=== PATIENT | male | born 1955 | race African-American/Black ===

== ENCOUNTER 2017-04-16 00:23 | Emergency (ER) | payer OTHER ==
--- NOTE | 2017-04-16 02:01 | ER Document Report ---
ED Cardiac - General Chief Complaint: Chest Pain > 30 Stated Complaint: CHEST PAIN Time Seen by Provider: 04/16/17 02:01 TRAVEL OUTSIDE OF THE [place] IN LAST 30 DAYS: No - HPI Notes: Patient is a 61-year-old male with a history of diabetes and hypertension who presents to the ED complaining of nonspecific chest pain and epigastric pain. Patient states that he has had this nonspecific chest pain intermittently for the last 2 years. Patient states that he did have a stress test about a month ago which was unremarkable per patient. Patient states that he has nitro at home that he tried to use during exacerbations of the pain with no relief. Patient states that he is not sure exactly what exacerbates the pain, but does tend to notice an increase in symptoms with exertion. Patient states that his sugars have been all over the place lately ranging from 200-400. Patient states that he is still able to eat and drink, but he feels bloated in his epigastric region and feels like his food is just sitting in his stomach. Patient states that he still urinating normally and having normal bowel movements otherwise. Patient states that his chest pain and epigastric pain are not sharp. Patient states that they are "noticeable" but cannot specify what kind of a pain it is. Patient states that it is more of a discomfort than actual pain. Patient has not noticed any increase in symptoms with stretching or palpation. Patient denies any previous WI, CVA, DVT, PE, dissection, aneurysm. He denies any smoking or illicit drug use. Denies any long distance travel or leg pains. He denies any drug allergies. Denies any headache, fever , head injury, neck pain, changes in vision/speech/mentation/hearing, URI, sore throat, chest pain, palpitations, syncope, cough, shortness of breath, wheeze, dyspnea, abdominal pain, nausea/vomiting/diarrhea, urinary retention, dysuria, hematuria, loss of control of bowel or bladder, numbness/tingling, saddle anesthesia, muscle paralysis/weakness, or rash. [facility] - Related Data Allergies/Adverse Reactions: No Known Allergies Allergy (Unverified 04/01/11 06:13) Past Medical History - Social History Smoking Status: Never Smoker Family History: Reviewed & Not Pertinent Patient has suicidal ideation: No Patient has homicidal ideation: No - Past Medical History Cardiac Medical History: Reports: Hx Hypercholesterolemia Renal/ Medical History: Denies: Hx Peritoneal Dialysis Past Surgical History: Reports: Hx Abdominal Surgery - Immunizations Hx Diphtheria, Pertussis, Tetanus Vaccination: No Review of Systems - Review of Systems Notes: REVIEW OF SYSTEMS: CONSTITUTIONAL : Denies fever, chills, or sweats. Denies recent illness. EENT: Denies eye, ear, throat, or mouth pain or symptoms. Denies nasal or sinus congestion or discharge. Denies throat, tongue, or mouth swelling or difficulty swallowing. CARDIOVASCULAR: see hpi. RESPIRATORY: Denies cough, cold, or chest congestion. Denies shortness of breath, difficulty breathing, or wheezing. GASTROINTESTINAL: see hpi. GENITOURINARY: Denies difficulty urinating, painful urination, burning, frequency, blood in urine, or discharge. MUSCULOSKELETAL: Denies back or neck pain or stiffness. Denies joint pain or swelling. SKIN: Denies rash, lesions or sores. NEUROLOGICAL: Denies confusion or altered mental status. Denies passing out or loss of consciousness. Denies dizziness or lightheadedness. Denies headache. Denies weakness or paralysis or loss of use of either side. Denies problems with gait or speech. Denies sensory loss, numbness, or tingling. denies seizures. PSYCHIATRIC: Denies anxiety or stress. Denies depression, suicidal ideation, or homicidal ideation. ALL OTHER SYSTEMS REVIEWED AND NEGATIVE. Dictation was performed using [employer] voice recognition software Physical Exam - Vital signs Vitals: Temp Pulse Resp BP Pulse Ox 97.8 F 65 22 H 118/75 97 04/16/17 00:39 04/16/17 00:39 04/16/17 00:39 04/16/17 00:39 04/16/17 00:39 Notes: PHYSICAL EXAMINATION: GENERAL: Well-appearing, well-nourished and in no acute distress. HEAD: Atraumatic, normocephalic. EYES: Pupils equal round and reactive to light, extraocular movements intact, sclera anicteric, conjunctiva are normal. ENT: Nares patent and without discharge. oropharynx clear without exudates. No tonsilar hypertrophy or erythema. Moist mucous membranes. No sinus tenderness. Chest: Non-tender. Equal rise/fall. NECK: Normal range of motion, supple without lymphadenopathy. No rigidity. LUNGS: Breath sounds clear to auscultation bilaterally and equal. No wheezes rales or rhonchi. HEART: Regular rate and rhythm without murmurs, rubs, gallops. ABDOMEN: Soft, nontender, nondistended abdomen. No guarding, no rebound. No masses appreciated. Normal bowel sounds present. No CVA tenderness bilaterally. Musculoskeletal: FROM to passive/active. Strength 5+/5. Bev negative. Extremities: No cyanosis, clubbing, or edema b/l. Peripheral pulses 2+. Capillary refill less than 3 seconds. NEUROLOGICAL: Normal speech, normal gait. Normal sensory, motor exams PSYCH: Normal mood, normal affect. SKIN: Warm, Dry, normal turgor, no rashes or lesions noted. Course - Re-evaluation Re-evalutation: 04/16/17 04:[address] Lopez: Pt has elevated Lipase. Reviewed with patient/ who would like to go ahead with the CT scan for further evaluation as patient does not drink and is currently symptomatic. 04/16/17 06:31 Patient is an afebrile, well-hydrated, 61-year-old male who presents to the ED with atypical chest pain and pancreatitis. Vitals are stable. PE otherwise unremarkable. Patient's chest pain has since resolved. Patient states that his abdominal bloating discomfort has also improved. Patient was given a liter of normal saline while in the ED. Reviewed case with Dr. Lopez. CBC, CMP ( aside from known elevated glucose), urinalysis unremarkable for acute pathology. Cardiac enzymes 2 and EKG 2 unremarkable. Heart score of 2. Pt had a negative stress test 1mo ago as per pt. low suspicion/risk for any ACS, PE, pneumothorax, pericarditis, dissection, sepsis, acute appendicitis, bowel obstruction, acute cholecystitis, perforated diverticulitis, incarcerated hernia , pancreatitis, perforated ulcer, peritonitis, testicular torsion, or other systemic emergent condition at this time. Patient is aware that his condition can change from initial presentation and he needs to monitor symptoms closely and seek medical attention if any acute changes. Reviewed with patient that based on his current presentation that we can opt for outpatient therapy with a clear liquid diet and close monitoring with a recheck of his lipase in 2 days either with his PCM or back in the emergency department vs admission. Patient would like to go with the outpatient therapy at this time. Conservative measures otherwise for symptoms. Recheck with PCM in 2-3 days. Consider consult with a greaser operator. Return to the ED with any worsening/ concerning symptoms otherwise as reviewed in discharge. Patient is in agreement. - Vital Signs Vital signs: Temp Pulse Resp BP Pulse Ox 97.8 F 65 20 126/67 H 95 04/16/17 00:39 04/16/17 00:39 04/16/17 05:01 04/16/17 05:01 04/16/17 05:01 - Laboratory Result Diagrams: 04/16/17 02:41 04/16/17 02:41 Laboratory results interpreted by me: 04/16/17 04/16/17 04/16/17 01:55 02:41 02:41 RBC 4.25 L Hgb 13.3 L Hct 37.1 L Glucose 324 H Creatine Kinase 219 H Total Protein 6.0 L Lipase Urine Glucose (UA) >=500 H Urine Blood SMALL H 04/16/17 02:41 RBC Hgb Hct Glucose Creatine Kinase Total Protein Lipase 766.6 H Urine Glucose (UA) Urine Blood Discharge - Discharge Clinical Impression: Atypical chest pain Pancreatitis Qualifiers: Chronicity: acute Pancreatitis type: unspecified pancreatitis type Acute pancreatitis complication: unspecified Qualified Code(s): K85.90 - Acute pancreatitis without necrosis or infection, unspecified Condition: Stable Disposition: HOME, SELF-CARE Instructions: Chest Pain of Unclear Cause ([facility]), Pancreatitis ([facility]), Follow-Up Care ([facility]) Additional Instructions: clear liquid diet as reviewed Your pancreatic enzymes will need rechecked in 2 days either with your PCM or the emergency department* Monitor symptoms for any acute changes After tolerating a clear liquid diet he may then add very bland meals Recheck with your PCM/ED in 2 days* Return to the ED with any worsening symptoms and/or development of fever, headache, chest pain, palpitations, syncope, shortness of breath, trouble breathing, abdominal pain, n/v/d, blood in stool/urine, or other worsening symptoms that are concerning to you. Prescriptions: Tramadol HCl 50 mg PO TID #15 tablet Forms: Elevated Blood Pressure Referrals: [facility] [Provider Group] - 04/18/17
[2017-04-16 02:53] LABS: ABSOLUTE EOSINOPHILS # (AUTO) 0.2 10^3/uL (0.0-0.6); ABSOLUTE LYMPHOCYTES (AUTO) 2.7 10^3/uL (0.5-4.7); BASOPHILS % (AUTO) 0.5 % (0-2); EOSINOPHILS % (AUTO) 2.1 % (0-6); HEMATOCRIT 37.1 % (37.9-51.0); HEMOGLOBIN 13.3 g/dL (13.5-17.0); HGB HCT DIFFERENCE 2.8; LYMPHOCYTES % (AUTO) 27.1 % (13-45); MEAN CORPUSCULAR HEMOGLOBIN 31.3 pg (27.0-33.4); MEAN CORPUSCULAR HGB CONC 35.9 g/dL (32.0-36.0); MEAN CORPUSCULAR VOLUME 87 fl (80-97); MONOCYTES % (AUTO) 9.9 % (3-13); RED BLOOD COUNT 4.25 10^6/uL (4.35-5.55); SEGMENTED NEUTROPHILS % (AUTO) 60.4 % (42-78); WHITE BLOOD COUNT 9.9 10^3/uL (4.0-10.5)
[2017-04-16 03:06] LABS: ALANINE AMINOTRANSFERASE 22 U/L (21-72); ALBUMIN 3.7 g/dL (3.5-5.0); ALKALINE PHOSPHATASE 78 U/L (38-126); ANION GAP 6 (5-19); ASPARTATE AMINO TRANSFERASE 18 U/L (17-59); BILIRUBIN,DIRECT 0.3 mg/dL (0.0-0.4); BILIRUBIN,TOTAL 0.5 mg/dL (0.2-1.3); BLOOD UREA NITROGEN 12 mg/dL (7-20); CALCIUM 9.1 mg/dL (8.4-10.2); CARBON DIOXIDE 27 mmol/L (22-30); CHLORIDE 104 mmol/L (98-107); CREATINE KINASE 219 U/L (55-170); CREATININE RESULT 0.54 mg/dL (0.52-1.25); GLUCOSE 324 mg/dL (75-110); POTASSIUM 3.7 mmol/L (3.6-5.0); SODIUM 137.1 mmol/L (137-145)
[2017-04-16 03:17] LABS: CREATINE KINASE MB 3.88 ng/mL (<4.55)
[2017-04-16 03:18] LABS: TROPONIN I < 0.012 ng/mL
--- NOTE | 2017-04-16 03:19 | RADIOLOGY REPORT (SQ) ---
EXAM DESCRIPTION: CHEST SINGLE VIEW COMPLETED DATE/TIME: 04/16/2017 3:06 am REASON FOR STUDY: chest/epigastric pain COMPARISON: 10.17.14 EXAM PARAMETERS: NUMBER OF VIEWS: One view. TECHNIQUE: Single frontal radiographic view of the chest acquired. RADIATION DOSE: NA LIMITATIONS: None. FINDINGS: LUNGS AND PLEURA: No opacities, masses or pneumothorax. No pleural effusion. MEDIASTINUM AND HILAR STRUCTURES: No masses. Contour normal. HEART AND VASCULAR STRUCTURES: Heart normal in size. Normal vasculature. BONES: No acute findings. HARDWARE: None in the chest. OTHER: No other significant finding. IMPRESSION: NO ACUTE RADIOGRAPHIC FINDING IN THE CHEST. TECHNICAL DOCUMENTATION: JOB ID: [id number]
[2017-04-16 03:22] LABS: APPEARANCE,URINE CLEAR; BILIRUBIN,URINE NEGATIVE (NEGATIVE); GLUCOSE, URINE >=500 mg/dL (NEGATIVE); KETONES,URINE NEGATIVE (NEGATIVE); LEUKOCYTE ESTERASE,URINE NEGATIVE (NEGATIVE); NITRITE,URINE NEGATIVE (NEGATIVE); PROTEIN,URINE NEGATIVE (NEGATIVE); URINE SPECIFIC GRAVITY 1.007; UROBILINOGEN,URINE NEGATIVE mg/dL (<2.0)
[2017-04-16] MEDS ORDERED: NORMAL SALINE 1000 ML 1,000 ML IV ONE (03:37)
[2017-04-16 03:43] LABS: ADD ON TESTING BLD IN LAB ACKNOWLEDGE
[2017-04-16 03:51] LABS: LIPASE 766.6 U/L (23-300)
--- NOTE | 2017-04-16 06:24 | RADIOLOGY REPORT (SQ) ---
EXAM DESCRIPTION: CT ABD/PELVIS WITH IV ONLY COMPLETED DATE/TIME: 04/16/2017 6:04 am REASON FOR STUDY: elevated lipase, epigastric pain COMPARISON: None. TECHNIQUE: CT scan of the abdomen and pelvis performed using helical scanning technique with dynamic intravenous contrast injection. No oral contrast. Images reviewed with lung, soft tissue, and bone windows. Reconstructed coronal and sagittal MPR images reviewed. Delayed images for evaluation of the urinary system also acquired. All images stored on PACS. All CT scanners at this facility use dose modulation, iterative reconstruction, and/or weight based d osing when appropriate to reduce radiation dose to as low as reasonably achievable (ALARA). [facility]: Dose Right [facility]: CareDose [facility]: Dose Right [facility]: Teradose 4D [facility]: Marcandi CONTRAST TYPE AND DOSE: contrast/concentration: Isovue 370.00 mg/ml; Total Contrast Delivered: 98.0 ml; Total Saline Delivered: 70.0 ml RENAL FUNCTION: Creatinine 0.5 RADIATION DOSE: Up-to-date CT equipment and radiation dose reduction techniques were employed. CTDIv ol: 15.6 mGy. DLP: 1673 mGy-cm.. LIMITATIONS: None. FINDINGS: LOWER CHEST: No significant findings. No nodules or infiltrates. LIVER: Normal size. No masses. No dilated ducts. SPLEEN: Normal size. No focal lesions. Splenule. PANCREAS: Mild diffuse enlargement of the pancreatic tail and moderate peripancreatic fat streaking. No significant free fluid. No enhancement abnormality to indicate necrosis at this time. GALLBLADDER: No identified stones by CT criteria. No inflammatory changes to suggest cholecystitis. ADRENAL GLANDS: No significant masses or asymmetry. RIGHT KIDNEY AND URETER: No solid masses. No significant calcifications. No hydronephrosis or hyd roureter. Likely benign 1.2 cm cyst not definitively characterize per LEFT KIDNEY AND URETER: No solid masses. No significant calcifications. No hydronephrosis or hydr oureter. AORTA AND VESSELS: No aneurysm. No dissection. Renal arteries, SMA, celiac without stenosis. RETROPERITONEUM: No retroperitoneal adenopathy, hemorrhage or masses. BOWEL AND PERITONEAL CAVITY: No masses or inflammatory changes. No free fluid or peritoneal masses. APPENDIX: Normal. PELVIS: No mass. No free fluid. Normal bladder. ABDOMINAL WALL: No masses. No hernias. BONES: Minimal developmental T12 and L1 anterior vertebral wedging. Small L5-S1 disc bulge causes mi [id number] bilateral foraminal stenoses. OTHER: No other significant finding. IMPRESSION: Mild -moderate pancreatitis. TECHNICAL DOCUMENTATION: JOB ID: [id number] Quality ID # [id number]: Final reports with documentation of one or more dose reduction techniques (e.g., Au tomated exposure control, adjustment of the mA and/or kV according to patient size, use of iterative reconstruction technique) 2010 [employer]- All Rights Reserved
[2017-04-16 07:03] VITALS: BP 119/67
--- NOTE | 2017-04-16 12:21 | EKG REPORT ---
SEVERITY:- NORMAL ECG - SINUS RHYTHM : Confirmed by: Laura Pina MD 16-Apr-2017 12:21:23
--- NOTE | 2017-04-16 12:22 | EKG REPORT ---
SEVERITY:- NORMAL ECG - SINUS RHYTHM : Confirmed by: Laura Pina MD 16-Apr-2017 12:21:26
== END 2017-04-16 07:16 | disposition home or self-care (01) ==
LOC: ER 00:23
DX: R07.89 Other chest pain (principal); K85.90 Acute pancreatitis without necrosis or infection, unspecified; E11.9 Type 2 diabetes mellitus without complications; I10 Essential (primary) hypertension; R10.13 Epigastric pain
CPT/HCPCS: 93005; 99285; 96360; 36415; 82553; 82550; 83690; 85025; 80053; 81001; 84484; 71010; 74177; 93010; J7030

== ENCOUNTER 2019-05-30 04:12 | Observation (INO) | payer OTHER ==
--- NOTE | 2019-05-30 04:35 | ER Document Report ---
ED Cardiac - General Chief Complaint: Chest Pain Stated Complaint: CHEST PAIN,ABDOMINAL PAIN,BACK PAIN Time Seen by Provider: 05/30/19 04:32 Information source: Patient Notes: Mr. Stein is a 63-year-old male with past medical history of hypertension, diabetes on Lantus and metformin, hyperlipidemia and chronic smoker presenting to the ED for abdominal pain, chest pain and back pain. Patient states it is primarily in bilateral upper quadrants of the abdomen and radiates backwards into the his left upper thorax. He states he has a history of pancreatitis one previous time before a few years ago. He denies any alcohol use, states that he drinks only on holidays. He states that he has been dealing with his ongoing pain over the past 2 weeks, worsening with food intake. He had his blood work drawn at the [facility] on Friday and was told that he does not have pancreatitis. Since the pain is worsened significantly with eating, the patient has looked up what decrease his pancreatitis and has been eating only chicken noodle broth, and other clear liquids. He states that even with liquids, he still having ongo ing severe pain. He denies any fevers or chills. He endorses ongoing nausea with dry heaves. He states that he is eaten 2-3 crackers in the past few days and that has worsened his pain significantly. He denies diarrhea, fever or shortness of breath. He states that he smokes approximately 1-1.5 packs of cigarettes daily for the past 20 to 30 years. He has multiple siblings with coronary artery disease that have required CABG and stents. He denies any personal history of CAD. TRAVEL OUTSIDE OF THE [place] IN LAST 30 DAYS: No - Related Data Allergies/Adverse Reactions: No Known Allergies Allergy (Verified 05/30/19 04:51) Home Medications: lantus 30 units qpm. metformin as neededmetoprolol. l isinopril. chol med Past Medical History - Social History Smoking Status: Current Every Day Smoker Frequency of alcohol use: None Drug Abuse: None Family History: Reviewed & Not Pertinent Patient has suicidal ideation: No Patient has homicidal ideation: No - Past Medical History Cardiac Medical History: Reports: Hx Hypercholesterolemia Renal/ Medical History: Denies: Hx Peritoneal Dialysis Past Surgical History: Reports: Hx Abdominal Surgery - Immunizations Hx Diphtheria, Pertussis, Tetanus Vaccination: No Review of Systems - Review of Systems Constitutional: See HPI EENT: No symptoms reported Cardiovascular: See HPI Respiratory: No symptoms reported Gastrointestinal: See HPI Genitourinary: No symptoms reported Male Genitourinary: No symptoms reported Musculoskeletal: No symptoms reported Skin: No symptoms reported Hematologic/Lymphatic: No symptoms reported Neurological/Psychological: No symptoms reported Physical Exam - Vital signs Vitals: Temp Pulse Resp BP Pulse Ox 97.5 F 76 16 125/67 99 05/30/19 04:18 05/30/19 04:18 05/30/19 04:18 05/30/19 04:18 05/30/19 04:18 Interpretation: Normal - General General appearance: Appears well, Alert - HEENT Head: Normocephalic, Atraumatic Eyes: Normal Pupils: PERRL - Respiratory Respiratory status: No respiratory distress Chest status: Nontender Breath sounds: Normal Chest palpation: Normal - Cardiovascular Rhythm: Regular Heart sounds: Normal auscultation Murmur: No - Abdominal Inspection: Normal Distension: No distension Bowel sounds: Normal Tenderness: Tender - Left upper quadrant tenderness palpation. No CVA tenderness bilaterally.. No: Guarding, Rebound Organomegaly: No organomegaly - Back Back: Normal, Nontender - Extremities General upper extremity: Normal inspection, Nontender, Normal color, Normal ROM, Normal temperature General lower extremity: Normal inspection, Nontender, Normal color, Normal ROM, Normal temperature, Normal weight bearing. No: Bev's sign - Neurological Neuro grossly intact: Yes Cognition: Normal Orientation: AAOx4 Somers Coma Scale Eye Opening: Spontaneous Somers Coma Scale Verbal: Oriented Somers Coma Scale Motor: Obeys Commands Somers Coma Scale Total: 15 Speech: Normal Motor strength normal: LUE, RUE, LLE, RLE Sensory: Normal - Psychological Associated symptoms: Normal affect, Normal mood - Skin Skin Temperature: Warm Skin Moisture: Dry Skin Color: Normal Course - Re-evaluation Re-evalutation: Patient is generally well-appearing and nontoxic. EKG nonischemic. Patient has several cardiac risk factors. Differential diagnosis includes CAD, angina, pancreatitis, GERD, PUD. CBC within normal limits. CMP is notable for hyperglycemia. Initial troponin is negative. Lipase is greater than 1400. 05/30/19 06:[address] Murphy for admission. Patient made n.p.o. Ordered for IV fluids as well as Zofran and morphine as he states the GI cocktail and Toradol did not improve his pain. 05/30/19 06:[address] Murphy for admission for pancreatitis given his ongoing pain despite having clear liquid diet and vomiting. 05/30/19 07:11 - Vital Signs Vital signs: Temp Pulse Resp BP Pulse Ox 98.2 F 86 19 106/65 99 05/30/19 04:33 05/30/19 04:33 05/30/19 04:33 05/30/19 04:33 05/30/19 04:33 - Laboratory Result Diagrams: 05/30/19 04:33 05/30/19 04:33 Laboratory results interpreted by me: 05/30/19 04:33 Creatinine 0.48 L Glucose 383 H Lipase 1488.7 H - EKG Interpretation by Al EKG shows normal: Sinus rhythm, [place], QRS Complexes, ST-T Waves Rate: Normal Rhythm: NSR Discharge - Discharge Clinical Impression: Pancreatitis, Back pain, Abdominal pain, Nausea and vomiting Condition: Good Disposition: ADMITTED INPATIENT Admitting Provider: Jeffrey (Hospitalist) Unit Admitted: Medical Floor
[2019-05-30 05:01] LABS: ABSOLUTE BASOPHILS # (AUTO) 0.1 10^3/uL (0.0-0.2); ABSOLUTE EOSINOPHILS # (AUTO) 0.3 10^3/uL (0.0-0.6); ABSOLUTE LYMPHOCYTES (AUTO) 2.7 10^3/uL (0.5-4.7); ABSOLUTE MONOCYTES (AUTO) 0.9 10^3/uL (0.1-1.4); ABSOLUTE NEUT (AUTO) 4.7 10^3/uL (1.7-8.2); BASOPHILS % (AUTO) 0.7 % (0-2); EOSINOPHILS % (AUTO) 3.2 % (0-6); HEMOGLOBIN 14.6 g/dL (13.5-17.0); LYMPHOCYTES % (AUTO) 31.5 % (13-45); MEAN CORPUSCULAR HEMOGLOBIN 30.7 pg (27.0-33.4); MEAN CORPUSCULAR HGB CONC 34.8 g/dL (32.0-36.0); MEAN CORPUSCULAR VOLUME 88 fl (80-97); MONOCYTES % (AUTO) 10.4 % (3-13); PLATELET COUNT 203 10^3/uL (150-450); RED BLOOD COUNT 4.76 10^6/uL (4.35-5.55); SEGMENTED NEUTROPHILS % (AUTO) 54.2 % (42-78); TOTAL CELLS COUNTED % (AUTO) 100 %; WHITE BLOOD COUNT 8.6 10^3/uL (4.0-10.5)
[2019-05-30 05:19] LABS: ALBUMIN 4.4 g/dL (3.5-5.0); ALKALINE PHOSPHATASE 84 U/L (38-126); ANION GAP 11 (5-19); ASPARTATE AMINO TRANSFERASE 21 U/L (17-59); BILIRUBIN,DIRECT 0.2 mg/dL (0.0-0.4); BILIRUBIN,TOTAL 0.7 mg/dL (0.2-1.3); BLOOD UREA NITROGEN 11 mg/dL (7-20); CALCIUM 9.8 mg/dL (8.4-10.2); CARBON DIOXIDE 26 mmol/L (22-30); CHLORIDE 101 mmol/L (98-107); CREATINE KINASE 101 U/L (55-170); GLUCOSE 383 mg/dL (75-110); TOTAL PROTEIN 7.2 g/dL (6.3-8.2)
[2019-05-30 05:31] LABS: CREATINE KINASE MB 1.72 ng/mL (<4.55); TROPONIN I < 0.012 ng/mL
[2019-05-30] MEDS ORDERED: KETOROLAC TROMETHAMINE INJ/PF 30 MG/1 ML SDV IV ONE (05:45)
[2019-05-30] MEDS ORDERED: MAG HYDROX/AL HYDROX/SIMETH SUSP 30 ML UDCUP PO ONE (05:45)
[2019-05-30] MEDS ORDERED: METOCLOPRAMIDE HCL ORAL SOLN 10 MG/10 ML UDCUP PO ONE (05:45)
[2019-05-30] MEDS ORDERED: LIDOCAINE 2% VISCOUS SOLN 20 ML UDCUP PO ONE (05:45)
--- NOTE | 2019-05-30 05:45 | RADIOLOGY REPORT (SQ) ---
Chest 2 view on 05/30/2019 at 4:59 AM CLINICAL INDICATION: Chest pain COMPARISON: 04/16/2017 FINDINGS: The lungs are clear. Cardiac, hilar and mediastinal contours are within normal limits. Pulmonary vascularity is within normal limits. Degenerative changes are noted in the spine. No acute bony abnormality is noted. IMPRESSION: No active disease.
[2019-05-30] MEDS ORDERED: NORMAL SALINE 1000 ML 2,000 ML IV ONE (06:34)
[2019-05-30] MEDS ORDERED: MORPHINE SULFATE 10 MG/ML INJ IV ONE (06:41)
[2019-05-30] MEDS ORDERED: ONDANSETRON HCL INJ/PF 4 MG/2 ML SDV IV ONE (06:41)
[2019-05-30] MEDS ORDERED: ACETAMINOPHEN 325 MG TABLET PO PRN (06:57)
[2019-05-30] MEDS ORDERED: DEXTROSE 40% GEL 15 GM TUBE PO PRN ×2 (06:57)
[2019-05-30] MEDS ORDERED: IPRATROPIUM/ALBUTEROL 0.5-2.5 MG/3 ML AMPUL NEB PRN (06:57)
[2019-05-30] MEDS ORDERED: GLUCAGON,HUMAN RECOMB 1 MG INJ IM PRN (06:57)
[2019-05-30] MEDS ORDERED: DEXTROSE 50%-WATER 25 GM/50 ML DISP.SYRIN IV PRN ×2 (06:57)
[2019-05-30] MEDS ORDERED: ONDANSETRON HCL INJ/PF 4 MG/2 ML SDV IV PRN (06:57)
[2019-05-30] MEDS ORDERED: NORMAL SALINE 1000 ML 1,000 ML IV PRN (07:00)
--- NOTE | 2019-05-30 07:14 | PDOC H&P ---
History of Present Illness Admission Date/PCP: 05/30/19 06:57 [facility] Patient complains of: Abdominal pain History of Present Illness: ELEAZAR CARRASCO SR is a 63 year old male with a past medical history of diabetes, hypertension, dyslipidemia, tobacco and chronic pancreatitis. He presents with 2-1/2 weeks of epigastric pain and nausea prompting evaluation in the emergency room. Patient is found to have a lipase of 1500 with out significant LFT abnormalities, intolerant of p.o. he is referred to the hospitalist for observation. Patient denies recent viral illness, new medication or alcohol however admits to poor diabetic control. Past Medical History Cardiac Medical History: Reports: Hyperlipidema, Hypertension Endocrine Medical History: Reports: Diabetes Mellitus Type 1 Social History Information Source: Patient Smoking Status: Current Every Day Smoker Frequency of Alcohol Use: None Drugs: None - Advance Directive Resuscitation Status: Full Code Family History Family History: COPD Parental Family History Reviewed: Yes Children Family History Reviewed: Yes Sibling(s) Family History Reviewed.: Yes Medication/Allergy Home Medications: Aspirin [Aspirin 81 mg Chewable Tablet] 81 mg PO DAILY 05/30/19 Atorvastatin Calcium [Lipitor 20 mg Tablet] 20 mg PO QHS 05/30/19 Insulin Glargine,Hum.rec.anlog [Lantus Insulin 100 Unit/1 ml 10 ml] 36 unit SUBCUT QHS 05/30/19 Lisinopril [Zestril] 2.5 mg PO DAILY 05/30/19 Metoprolol Tartrate [Lopressor 25 mg Tablet] 12.5 mg PO DAILY 05/30/19 Allergies/Adverse Reactions: No Known Allergies Allergy (Verified 05/30/19 04:51) Review of Systems Constitutional: ABSENT: chills, fever(s), headache(s), weight gain, weight loss Eyes: ABSENT: visual disturbances Ears: ABSENT: hearing changes Cardiovascular: ABSENT: chest pain, dyspnea on exertion, edema, orthropnea, palpitations Respiratory: ABSENT: cough, hemoptysis Gastrointestinal: ABSENT: abdominal pain, constipation, diarrhea, hematemesis, hematochezia, nausea, vomiting Genitourinary: ABSENT: dysuria, hematuria Musculoskeletal: ABSENT: joint swelling Integumentary: ABSENT: rash, wounds Neurological: ABSENT: abnormal gait, abnormal speech, confusion, dizziness, focal weakness, syncope Psychiatric: ABSENT: anxiety, depression, homidical ideation, suicidal ideation Endocrine: ABSENT: cold intolerance, heat intolerance, polydipsia, polyuria Hematologic/Lymphatic: ABSENT: easy bleeding, easy bruising Physical Exam Vital Signs: Temp Pulse Resp BP Pulse Ox 98.2 F 86 19 106/65 99 05/30/19 04:33 05/30/19 04:33 05/30/19 04:33 05/30/19 04:33 05/30/19 04:33 Intake & Output 05/28/19 05/29/19 05/30/19 11:59 11:59 11:59 Weight 89.3 kg General appearance: PRESENT: mild distress, well-developed, well-nourished Head exam: PRESENT: atraumatic, normocephalic Eye exam: PRESENT: conjunctiva pink, EOMI, PERRLA. ABSENT: scleral icterus Ear exam: PRESENT: normal external ear exam Mouth exam: PRESENT: moist, tongue midline Neck exam: ABSENT: carotid bruit, JVD, lymphadenopathy, thyromegaly Respiratory exam: PRESENT: clear to auscultation brown. ABSENT: rales, rhonchi, wheezes Cardiovascular exam: PRESENT: RRR. ABSENT: diastolic murmur, rubs, systolic murmur Pulses: PRESENT: normal dorsalis pedis pul Vascular exam: PRESENT: normal capillary refill GI/Abdominal exam: PRESENT: hyperactive bowel sounds, normal bowel sounds, soft, tenderness. ABSENT: distended, guarding, mass, organolmegaly, rebound Rectal exam: PRESENT: deferred Extremities exam: PRESENT: full ROM. ABSENT: calf tenderness, clubbing, pedal edema Neurological exam: PRESENT: alert, awake, oriented to person, oriented to place, oriented to time, oriented to situation, CN II-XII grossly intact. ABSENT: motor sensory deficit Psychiatric exam: PRESENT: appropriate affect, normal mood. ABSENT: homicidal ideation, suicidal ideation Skin exam: PRESENT: dry, intact, warm. ABSENT: cyanosis, rash Results Laboratory Results: 05/30/19 04:33 05/30/19 04:33 05/30/19 05/30/19 04:33 04:33 WBC 8.6 RBC 4.76 Hgb 14.6 Hct 42.0 MCV 88 MCH 30.7 MCHC 34.8 RDW 12.0 Plt Count 203 Seg Neutrophils % 54.2 Sodium 137.7 Potassium 5.0 Chloride 101 Carbon Dioxide 26 Anion Gap 11 BUN 11 Creatinine 0.48 L Est GFR ( Amer) > 60 Glucose 383 H Calcium 9.8 Total Bilirubin 0.7 AST 21 Alkaline Phosphatase 84 Total Protein 7.2 Albumin 4.4 Lipase 1488.7 H 05/30/19 05/30/19 04:33 04:33 Creatine Kinase 101 CK-MB (CK-2) 1.72 Troponin I < 0.012 Impressions: Chest X-Ray 05/30/19 00:00 IMPRESSION: No active disease. Assessment and Plan - Diagnosis (1) Diabetes Is this a current diagnosis for this admission?: Yes Plan: Outpatient Lantus at reduced dose, Humalog sliding scale as needed follow-up A1c follow-up A1c (2) Tobacco abuse Is this a current diagnosis for this admission?: Yes Plan: Discussed, nicotine replacement options (3) Abdominal pain Is this a current diagnosis for this admission?: Yes Plan: Secondary #1 (4) Pancreatitis Is this a current diagnosis for this admission?: Yes Plan: Follow-up CT, lipid profile, A1c. Bowel rest, symptomatic management - Time Time Spent with patient: 15-24 minutes
[2019-05-30 09:40] LABS: APPEARANCE,URINE CLEAR; BILIRUBIN,URINE NEGATIVE (NEGATIVE); COLOR,URINE YELLOW; GLUCOSE, URINE >=500 mg/dL (NEGATIVE); KETONES,URINE NEGATIVE (NEGATIVE); LEUKOCYTE ESTERASE,URINE NEGATIVE (NEGATIVE); NITRITE,URINE NEGATIVE (NEGATIVE); PROTEIN,URINE NEGATIVE (NEGATIVE); URINE SPECIFIC GRAVITY 1.015; UROBILINOGEN,URINE NEGATIVE mg/dL (<2.0)
[2019-05-30 09:55] LABS: URINE AMPHETAMINES SCREEN NEGATIVE; URINE BARBITURATES SCREEN NEGATIVE; URINE BENZODIAZEPINES SCREEN NEGATIVE; URINE COCAINE SCREEN NEGATIVE; URINE MARIJUANA (THC) SCREEN NEGATIVE; URINE METHADONE SCREEN NEGATIVE; URINE PHENCYCLIDINE SCREEN NEGATIVE
[2019-05-30] MEDS ORDERED: METOPROLOL TARTRATE 25 MG TABLET PO SCH (10:00)
[2019-05-30] MEDS ORDERED: ASPIRIN 81 MG TABLET, CHEWABLE PO SCH (10:00)
--- NOTE | 2019-05-30 11:30 | RADIOLOGY REPORT (SQ) ---
EXAM DESCRIPTION: CT ABDOMEN WITH IV ORAL CONT COMPLETED DATE/TIME: 05/30/2019 11:13 am REASON FOR STUDY: acute pancreatitis COMPARISON: 2017 TECHNIQUE: CT scan of the abdomen performed with intravenous and with oral contrast using helical sc anning technique with dynamic intravenous contrast injection. Images reviewed with lung, soft tissue, and bone windows. Reconstructed coronal and sagittal MPR images reviewed. Delayed images were not ac quired. All images stored on PACS. All CT scanners at this facility use dose modulation, iterative reconstruc tion, and/or weight based dosing when appropriate to reduce radiation dose to as low as reasonably ac hievable (ALARA). [facility]: Dose Right [facility]: CareDose [facility]: Dose Right [facility]: Teradose 4D [facility]: Baytex CONTRAST TYPE AND DOSE: contrast/concentration: Isovue 350.00 mg/ml; Total Contrast Delivered: 100.0 ml; Total Saline Delivered: 72.0 ml No RENAL FUNCTION: GFR > 60. RADIATION DOSE: CT Rad equipment meets quality standard of care and radiation dose reduction techniq ues were employed. CTDIvol: 10.2 mGy. DLP: 370 mGy-cm. . LIMITATIONS: None. FINDINGS: LOWER CHEST: No significant findings. No nodules or infiltrates. LIVER: Normal size. No masses. No dilated ducts. SPLEEN: Normal size. No focal lesions. PANCREAS: Minimal peripancreatic haziness. No masses. No calcifications. GALLBLADDER: No identified stones by CT criteria. No inflammatory changes to suggest cholecystitis. ADRENAL GLANDS: No significant masses or asymmetry. RIGHT KIDNEY AND URETER: No solid masses. No significant calcifications. No hydronephrosis or hyd roureter. LEFT KIDNEY AND URETER: No solid masses. No significant calcifications. No hydronephrosis or hydr oureter. AORTA AND VESSELS: No aneurysm. No dissection. Renal arteries, SMA, celiac without stenosis. RETROPERITONEUM: No retroperitoneal adenopathy, hemorrhage or masses. BOWEL AND PERITONEAL CAVITY: No masses or inflammatory changes. No free fluid or peritoneal masses. APPENDIX: Not visualized. ABDOMINAL WALL: No masses. No hernias. BONES: No significant or acute findings. OTHER: No other significant finding. IMPRESSION: Mild changes of pancreatitis. No pseudocyst. TECHNICAL DOCUMENTATION: JOB ID: [id number] Quality ID # [id number]: Final reports with documentation of one or more dose reduction techniques (e.g., Au tomated exposure control, adjustment of the mA and/or kV according to patient size, use of iterative reconstruction technique) 2010 [employer]- All Rights Reserved Reading location - IP/workstation name: [email or web address]
[2019-05-30] MEDS: INSULIN LISPRO 100 UNIT/ML 3 ML VIAL SUBCUT SCH ×2 (11:46→12:00)
[2019-05-30] MEDS ORDERED: HEPARIN SOD (PORCINE) 5,000 UNIT/ML 1 ML VIAL SUBCUT SCH (14:00)
--- NOTE | 2019-05-30 15:39 | PDOC DISCHARGE SUMMARY ---
Impression - Admit/DC Date/PCP Admission Date/Primary Care Provider: 05/30/19 06:57 [facility] Discharge Date: 05/30/19 - Discharge Diagnosis (1) Dyspepsia Is this a current diagnosis for this admission?: Yes (2) Pancreatitis Is this a current diagnosis for this admission?: Yes (3) Diabetes Is this a current diagnosis for this admission?: Yes (4) Tobacco abuse Is this a current diagnosis for this admission?: Yes - Assessment Summary: Mr. Stein is a 63-year-old male with prior history of pancreatitis, diabetes and tobacco use, who presented to the hospital with complains of abdominal and lower chest pain with radiation to the back. On presentation patient confirmed that he felt somewhat similar to his prior pancreatitis episode. Does not have any clear triggers. Vital signs on presentation were unremarkable. Blood work revealed elevated lipase 1400s. CT scan showed minimal pancreatic inflammation. Patient was admitted with concern for another pancreatitis flare. He received IV fluids and has gotten a total of over 2 L along with pain medications. Patient has been able to tolerate diet. Patient currently states that he is completely pain-free and his pain resolved after receiving an oral suspension of Maalox. Patient also raises potential of dyspepsia/indigestion playing a role in patient's symptoms. Of note, troponin measurements were obtained and were all negative. Patient currently expresses wishes to go home states that he will be compliant with hydration and gradually advance his diet as tolerated. States he will follow-up with his primary care immediately. Patient is currently going to be discharged as he is pain-free, nausea free and able to tolerate a diet. - Additional Information Resuscitation Status: Full Code Discharge Diet: Full Liquids - Gradually advance her diet as tolerated Discharge Activity: Activity As Tolerated Referrals: [facility] [[facility]] - Follow up as needed Prescriptions: Mag Hydrox/Al Hydrox/Simeth [Maalox Plus Susp 30 Udcup] 30 ml PO Q6 PRN #30 udc PRN Reason: Heartburn Home Medications: Atorvastatin Calcium [Lipitor 20 mg Tablet] 20 mg PO QHS 05/30/19 Insulin Glargine,Hum.rec.anlog [Lantus Insulin 100 Unit/1 ml 10 ml] 30 unit SUBCUT QHS 05/30/19 Lisinopril [Zestril] 2.5 mg PO DAILY 05/30/19 Mag Hydrox/Al Hydrox/Simeth [Maalox Plus Susp 30 Udcup] 30 ml PO Q6 PRN #30 udc 05/30/19 Metformin HCl [Glucophage] 1,000 mg PO BIDBS 05/30/19 Metoprolol Tartrate [Lopressor 25 mg Tablet] 12.5 mg PO DAILY 05/30/19 History of Present Illiness History of Present Illness: ELEAZAR STEIN SR is a 63 year old male with a past medical history of diabetes, hypertension, dyslipidemia, tobacco and chronic pancreatitis. He presents with 2-1/2 weeks of epigastric pain and nausea prompting evaluation in the emergency room. Patient is found to have a lipase of 1500 with out significant LFT abnormalities, intolerant of p.o. he is referred to the hospitalist for observation. Patient denies recent viral illness, new medication or alcohol however admits to poor diabetic control. Physical Exam Vital Signs: Temp Pulse Resp BP Pulse Ox 98.5 F 56 L 16 97/55 L 98 05/30/19 12:19 05/30/19 12:19 05/30/19 12:19 05/30/19 12:19 05/30/19 12:19 Intake & Output 05/29/19 05/30/19 05/31/19 06:59 06:59 06:59 Intake Total 2868 Output Total 60 Balance 2808 Weight 89.3 kg 76.5 kg General appearance: PRESENT: no acute distress, cooperative Eye exam: PRESENT: EOMI Respiratory exam: PRESENT: clear to auscultation brown, symmetrical, unlabored. ABSENT: tachypnea, wheezes Cardiovascular exam: PRESENT: RRR, +S1, +S2. ABSENT: tachycardia GI/Abdominal exam: PRESENT: normal bowel sounds, soft. ABSENT: guarding, rebound, rigid, tenderness Extremities exam: ABSENT: pedal edema Neurological exam: PRESENT: alert, awake, oriented to person, oriented to place, oriented to time, oriented to situation Results Laboratory Results: WBC 8.6 10^3/uL (4.0-10.5) 05/30/19 04:33 RBC 4.76 10^6/uL (4.35-5.55) 05/30/19 04:33 Hgb 14.6 g/dL (13.5-17.0) 05/30/19 04:33 Hct 42.0 % (37.9-51.0) 05/30/19 04:33 MCV 88 fl (80-97) 05/30/19 04:33 MCH 30.7 pg (27.0-33.4) 05/30/19 04:33 MCHC 34.8 g/dL (32.0-36.0) 05/30/19 04:33 RDW 12.0 % (11.5-14.0) 05/30/19 04:33 Plt Count 203 10^3/uL (150-450) 05/30/19 04:33 Lymph % (Auto) 31.5 % (13-45) 05/30/19 04:33 [place] % (Auto) 10.4 % (3-13) 05/30/19 04:33 Eos % (Auto) 3.2 % (0-6) 05/30/19 04:33 Baso % (Auto) 0.7 % (0-2) 05/30/19 04:33 Absolute Neuts (auto) 4.7 10^3/uL (1.7-8.2) 05/30/19 04:33 Absolute Lymphs (auto) 2.7 10^3/uL (0.5-4.7) 05/30/19 04:33 Absolute Monos (auto) 0.9 10^3/uL (0.1-1.4) 05/30/19 04:33 Absolute Eos (auto) 0.3 10^3/uL (0.0-0.6) 05/30/19 04:33 Absolute Basos (auto) 0.1 10^3/uL (0.0-0.2) 05/30/19 04:33 Seg Neutrophils % 54.2 % (42-78) 05/30/19 04:33 Sodium 137.7 mmol/L (137-145) 05/30/19 04:33 Potassium 5.0 mmol/L (3.6-5.0) 05/30/19 04:33 Chloride 101 mmol/L (98-107) 05/30/19 04:33 Carbon Dioxide 26 mmol/L (22-30) 05/30/19 04:33 Anion Gap 11 (5-19) 05/30/19 04:33 BUN 11 mg/dL (7-20) 05/30/19 04:33 Creatinine 0.48 mg/dL (0.52-1.25) L 05/30/19 04:33 Est GFR ( Amer) > 60 (>60) 05/30/19 04:33 Est GFR (MDRD) Non-Af > 60 (>60) 05/30/19 04:33 Glucose 383 mg/dL (75-110) H 05/30/19 04:33 POC Glucose 104 mg/dL (70-110) 05/30/19 14:56 Calcium 9.8 mg/dL (8.4-10.2) 05/30/19 04:33 Total Bilirubin 0.7 mg/dL (0.2-1.3) 05/30/19 04:33 Direct Bilirubin 0.2 mg/dL (0.0-0.4) 05/30/19 04:33 Neonat Total Bilirubin Not Reportable 05/30/19 04:33 Neonat Direct Bilirubin Not Reportable 05/30/19 04:33 Neonat Indirect Bili Not Reportable 05/30/19 04:33 AST 21 U/L (17-59) 05/30/19 04:33 ALT 13 U/L (<50) 05/30/19 04:33 Alkaline Phosphatase 84 U/L (38-126) 05/30/19 04:33 Creatine Kinase 101 U/L (55-170) 05/30/19 04:33 CK-MB (CK-2) 1.72 ng/mL (<4.55) 05/30/19 04:33 Troponin I < 0.012 ng/mL 05/30/19 07:44 Total Protein 7.2 g/dL (6.3-8.2) 05/30/19 04:33 Albumin 4.4 g/dL (3.5-5.0) 05/30/19 04:33 Lipase 1488.7 U/L (23-300) H 05/30/19 04:33 Urine Color YELLOW 05/30/19 09:15 Urine Appearance CLEAR 05/30/19 09:15 Urine pH 6.0 (5.0-9.0) 05/30/19 09:15 Ur Specific Wells 1.015 05/30/19 09:15 Urine Protein NEGATIVE mg/dL (NEGATIVE) 05/30/19 09:15 Urine Glucose (UA) >=500 mg/dL (NEGATIVE) H 05/30/19 09:15 Urine Ketones NEGATIVE mg/dL (NEGATIVE) 05/30/19 09:15 Urine Blood SMALL (NEGATIVE) H 05/30/19 09:15 Urine Nitrite NEGATIVE (NEGATIVE) 05/30/19 09:15 Urine Bilirubin NEGATIVE (NEGATIVE) 05/30/19 09:15 Urine Urobilinogen NEGATIVE mg/dL (<2.0) 05/30/19 09:15 Ur Leukocyte Esterase NEGATIVE (NEGATIVE) 05/30/19 09:15 Urine WBC (Auto) 0 /HPF 05/30/19 09:15 Urine RBC (Auto) 1 /HPF 05/30/19 09:15 U Hyaline Cast (Auto) 1 /LPF 05/30/19 09:15 Urine Mucus (Auto) RARE /LPF 05/30/19 09:15 Urine Ascorbic Acid NEGATIVE (NEGATIVE) 05/30/19 09:15 Urine Opiates Screen UNCONFIRMED POSITIVE 05/30/19 09:15 Urine Methadone Screen NEGATIVE 05/30/19 09:15 Ur Barbiturates Screen NEGATIVE 05/30/19 09:15 Ur Phencyclidine Scrn NEGATIVE 05/30/19 09:15 Ur Amphetamines Screen NEGATIVE 05/30/19 09:15 U Benzodiazepines Scrn NEGATIVE 05/30/19 09:15 Urine Cocaine Screen NEGATIVE 05/30/19 09:15 U Marijuana (THC) Screen NEGATIVE 05/30/19 09:15 05/30/19 05/30/19 04:33 07:44 CK-MB (CK-2) 1.72 Troponin I < 0.012 < 0.012 Impressions: Abdomen CT 05/30/19 00:00 IMPRESSION: Mild changes of pancreatitis. No pseudocyst. Chest X-Ray 05/30/19 00:00 IMPRESSION: No active disease. Stroke Is this a Stroke Patient?: No Acute Heart Failure - Is this a Heart Failure Patient?: No
[2019-05-30 15:40] VITALS: BP 97/57
[2019-05-30] MEDS ORDERED: INSULIN GLARGINE,HUM.REC.ANLOG 1,000 UNIT/10 ML VIAL SUBCUT SCH (22:00)
[2019-05-30] MEDS ORDERED: ATORVASTATIN CALCIUM 20 MG TABLET PO SCH (22:00)
--- NOTE | 2019-05-30 23:19 | EKG REPORT ---
SEVERITY:- OTHERWISE NORMAL ECG - SINUS RHYTHM MINIMAL ST ELEVATION, ANTERIOR LEADS : Confirmed by: Narendra Berkowitz 30-May-2019 23:18:20
[2019-05-31] MEDS ORDERED: LISINOPRIL 5 MG TABLET PO SCH (10:00)
== END 2019-05-30 15:56 | disposition home or self-care (01) ==
LOC: ER 04:12 → EH 06:57 → INTOOBSV 06:57 → 4N 08:53
PROVIDERS: ADMIT Internal Medicine; ATTEND Internal Medicine
DX: K86.1 Other chronic pancreatitis (principal); R10.13 Epigastric pain; E10.65 Type 1 diabetes mellitus with hyperglycemia; E78.5 Hyperlipidemia, unspecified; I10 Essential (primary) hypertension; F17.210 Nicotine dependence, cigarettes, uncomplicated; M54.9 Dorsalgia, unspecified; Z79.899 Other long term (current) drug therapy; Z83.6 Family history of other diseases of the respiratory system; Z79.4 Long term (current) use of insulin; Z82.49 Family history of ischemic heart disease and other diseases of the circulatory system
CPT/HCPCS: 93005; 99285; 96361; 96374; 96375; 36415; 82553; 82962; 82550; 83690; 85025; 80053; 81001; 84484; 80307; 71046; 74160; 93010; G0378 ×2; J1644; J1815; J3490; J1885; J2270; J2405; J7030